=== PATIENT | female | born 1990 | race Asian ===

== ENCOUNTER 2018-12-31 04:37 | Emergency (ER) | payer SELFPAY ==
[~2018-12-31] VITALS: Ht 157.5 cm; Wt 68.0 kg
[2018-12-31 04:57] VITALS: BP 114/69
--- NOTE | 2018-12-31 04:58 | Emergency Room Report ---
History of Present Illness General Chief Complaint: Upper Extremity Injury Source: Patient Present Illness HPI Is a 28-year-old female who is right-hand dominant. She presents with chief complaint of right shoulder pain. Patient said that she was goofing around and fell onto her right shoulder area. She felt that shoulder was dislocated and spontaneously reduced. Now is very sore to the area. No other trauma. Did not pass out. Pain is 8 out of 10. No fever chills but no nausea no vomiting. No head injury. Movement made it worse. Rest made it better. Allergies: Coded Allergies: No Known Allergies (Unverified , 12/31/18) Patient History Past Medical History: none, see triage record, old chart reviewed Past Surgical History: none Pertinent Family History: none Social History: Denies: smoking Last Menstrual Period: 12/18/18 Now: No : 0 Para: 0 Immunizations: other Reviewed Nursing Documentation: PMH: Agreed; PSxH: Agreed Nursing Documentation-PMH Past Medical History: No Stated History Review of Systems Eye: Denies: eye pain, blurred vision ENT: Denies: ear pain, nose congestion, throat swelling Respiratory: Denies: cough, shortness of breath Cardiovascular: Denies: chest pain, palpitations Gastrointestinal: Denies: abdominal pain, diarrhea, nausea, vomiting Musculoskeletal: Reports: joint pain; Denies: back pain Skin: Denies: rash Neurological: Denies: headache, numbness Endocrine: Denies: increased thirst, increased urine Hematologic/Lymphatic: Denies: easy bruising All Other Systems: negative except mentioned in HPI Physical Exam Vital Signs Date Time Temp Pulse Resp B/P (MAP) Pulse Ox O2 Delivery O2 Flow Rate FiO2 12/31/18 04:40 97.9 77 19 114/69 (84) 99 Room Air vitals normal Sp02 EP Interpretation: reviewed, normal General Appearance: well appearing, no apparent distress, alert Head: normocephalic, atraumatic Eyes: bilateral eye PERRL, bilateral eye EOMI ENT: hearing grossly normal, normal pharynx Neck: full range of motion, supple, no meningismus Respiratory: chest non-tender, lungs clear, normal breath sounds Cardiovascular #1: regular rate, rhythm, no murmur Gastrointestinal: normal bowel sounds, non tender, no mass, no organomegaly, no bruit, non-distended Musculoskeletal: back normal, gait/station normal, other - Right shoulder with diffuse tenderness. No deformity. Sensation normal. Elbow nontender. Psychiatric: mood/affect normal Skin: warm/dry Medical Decision Making Diagnostic Impression: Primary Impression: Dislocation, shoulder, anterior Qualified Codes: S43.014A - Anterior dislocation of right humerus, initial encounter ER Course Patient presents with right shoulder injury. Patient description sound she had a into her shoulder dislocation that is spontaneous reduced. No evidence of any fracture. No evidence of any current dislocation. We'll discharge home. Other X-Ray Diagnostic Results Other X-Ray Diagnostic Results : X-Ray ordered: Right shoulder x-rays # of Views/Limited Vs Complete: 4 View Indication: Pain EP Interpretation: Yes Interpretation: no dislocation, no soft tissue swelling, no fractures Impression: No acute disease Electronically Signed by: Luis Blake MD Last Vital Signs Date Time Temp Pulse Resp B/P (MAP) Pulse Ox O2 Delivery O2 Flow Rate FiO2 12/31/18 04:40 97.9 77 19 114/69 (84) 99 Room Air Status: improved Disposition: HOME, SELF-CARE Condition: Stable Scripts Ibuprofen* (MOTRIN*) 600 Mg Tablet 600 MG ORAL THREE TIMES A DAY, #30 TAB 0 Refills Prov: Luis Blake MD 12/31/18 Hydrocodone/Acetaminophen 5-325* (HYDROCODONE/ACETAMINOPHEN 5-325*) 1 Each Tablet 1 TAB ORAL Q6H PRN for For Pain, #10 TAB 0 Refills Prov: Luis Blake MD 12/31/18 Additional Instructions: Follow-up with your doctor in 7 days. If continue with pain, may need MRI. Return if worse. Luis Blake MD December 31, 2018 04:58
--- NOTE | 2018-12-31 04:59 | NUR ---
ER Nurse Note: Pt came from home c/o right shoulder pain. Pt stated she fell on her shoulder around 0200, heard a pop but may have popped it back into place afterwards. Pt can move fingers with no distress but cannot raise her arm off the bed. Cap refill less than 3 secs. Pt a&ox4, VSS, no signs of distress. Ice pack applied. Will continue to [facility].
[2018-12-31] MEDS ORDERED: HYDROcodone/Acetamin 5/325 tab ORAL ONE (05:00)
[2018-12-31] MEDS ORDERED: IBUPROFEN600 MG ORAL (05:21)
[2018-12-31] MEDS ORDERED: HYDROCODON-ACE1 EA15 ORAL (05:21)
[2018-12-31 05:40] VITALS: BP 114/69
--- NOTE | 2018-12-31 05:40 | NUR ---
ER Nurse Note: All orders completed per ERMD orders. Pt seen, treated, medically cleared for discharge by ERMD. Discharge instructions and prescriptions given with repeat verbazliaion by pt. Instructed pt to follow up with primary care provider within one week. Pt a&ox4, VSS, no signs of distress; denies shortness of breath, n/v, pain. Ice pack provided. ID band removed. Shoulder immobilizer applied by central sterile technician. Pt left with all belongings with steady gait via own transportation with significant other.
--- NOTE | 2018-12-31 06:15 | Diagnostic Imaging Report ---
EXAM: XR Right Shoulder Complete, 2 or More Views CLINICAL HISTORY: PAIN TECHNIQUE: Two or more views of the right shoulder. COMPARISON: No relevant prior studies available. FINDINGS/IMPRESSION: No acute fracture is identified. No anterior dislocation. Shoulder appears in internal rotation on all views. Posterior dislocation is not excluded. Recommend axillary view if there is suspicion for this. If patient is unable to position for axillary view, CT could be obtained.
== END 2018-12-31 05:40 | disposition home or self-care (01) ==
LOC: EMR 05:23
DX: S43.014A Anterior dislocation of right humerus, initial encounter (principal); X58.XXXA Exposure to other specified factors, initial encounter; Y92.9 Unspecified place or not applicable
CPT/HCPCS: 99283